=== PATIENT | male | born 1985 | race Caucasian/White ===

== ENCOUNTER → 2016-09-24 | Outpatient (CLI) | payer OTHER ==
[~2016-09-24] MED LIST: OXYC-609 PO
[2016-09-24 14:57] LABS: DAYS OF ABSTINENCE 3; METHOD OF COLLECTION MASTURBATION; SEMEN COLOR GRAY OR GRAY-WHITE (GRY/GRYWHTE); SEMEN TIME OF COLLECTION 1240; SPERM VIABILITY STAIN NOT INDICATED % (>58%); TYPE OF SPECIMEN CONTAINER STERILE CUP
== END | disposition home or self-care (01) ==
LOC: C.LAB 13:09
PROVIDERS: ATTEND Obstetrics & Gynecology
DX: Z31.41 Encounter for fertility testing (principal)